=== PATIENT | male | born 1960 | race Hispanic/Latino ===

== ENCOUNTER 2020-08-21 08:53 | Emergency (ER) | payer OTHER | END 2020-08-21 10:10 | disposition home or self-care (01) | LOC: EDH 08:53 | DX: S43.51XA Sprain of right acromioclavicular joint, initial encounter (principal); Z87.891 Personal history of nicotine dependence; V89.2XXA Person injured in unspecified motor-vehicle accident, traffic, initial encounter; Y93.89 Activity, other specified; Y92.488 Other paved roadways as the place of occurrence of the external cause; Y99.8 Other external cause status | CPT/HCPCS: 73000 ==